=== PATIENT | female | born 1970 | race Caucasian/White ===

== ENCOUNTER 2019-05-31 08:20 | Outpatient (CLI) | payer BC, SELFPAY ==
--- NOTE | ~2019-05-31 | XR_ITS ---
XR knee RT min 4V 05/31/2019 08:53 INDICATION: Right knee pain PROCEDURE: 4 views right knee COMPARISON: No prior studies for comparison. FINDINGS: Fracture, dislocation or subluxation is not identified. No significant joint effusion. The soft tissues appear within normal limits. No foreign bodies are identified. IMPRESSION: 1: NO ACUTE BONE OR JOINT ABNORMALITY IDENTIFIED. Reviewed, dictated and finalized at location A.
--- NOTE | ~2019-05-31 | XR_ITS ---
XR shoulder LT min 2V 05/31/2019 08:53 Indication: Left shoulder pain Procedure: 4 views left shoulder Comparison: 06/05/2016 Findings: There is osteoarthritis of the left acromioclavicular joint. No fracture, subluxation or di slocation. No focal soft tissue abnormality. No foreign bodies. Visualized lung parenchyma is unremar kable. Impression: 1: Mild osteoarthritis of the left acromioclavicular joint. Reviewed, dictated and finalized at location A. Impression: 1: Mild osteoarthritis of the left acromioclavicular joint.
== END 2019-05-31 08:21 | disposition home or self-care (01) ==
PROVIDERS: PCP Nurse Practitioner Family; Visit Provider Nurse Practitioner Family
DX: M19.012 Primary osteoarthritis, left shoulder (principal)
CPT/HCPCS: 73030; 73564

== ENCOUNTER 2019-07-23 10:40 | Outpatient (CLI) | payer BC, SELFPAY ==
--- NOTE | ~2019-07-23 | XR_ITS ---
EXAMINATION: XR elbow LT min 3V DATE: 07/23/2019 11:04 INDICATION: Left elbow pain and locking up TECHNIQUE: Anteroposterior, two oblique and lateral views of the left elbow were obtained. COMPARISON: None. FINDINGS: Alignment is normal. No fracture or joint effusion. Mild osteoarthritis at the left elbow with small marginal osteophytes as well as mild nonuniform joint space narrowing at the ulnotrochlear articulati on. 6 x 4 mm loose osteochondral body projects along the posterior margin of the ulnotrochlear articu lation. Soft tissues are unremarkable. IMPRESSION: 1. Mild left elbow osteoarthritis with loose osteochondral body at the posterior margin of the ulnotr ochlear articulation. Reviewed, dictated and finalized at location A. IMPRESSION: 1. Mild left elbow osteoarthritis with loose osteochondral body at the posterio r margin of the ulnotrochlear articulation.
== END 2019-07-23 10:41 | disposition home or self-care (01) ==
PROVIDERS: PCP Nurse Practitioner Family; Visit Provider Nurse Practitioner Family
DX: M25.522 Pain in left elbow (principal); M19.022 Primary osteoarthritis, left elbow
CPT/HCPCS: 73080

== ENCOUNTER 2019-10-03 08:21 | Outpatient (CLI) | payer BC, SELFPAY ==
--- NOTE | 2019-10-03 11:00 | NEURO_ITS ---
Patient Number: [id number] Impression: # Complains of numbness and pain of hands # Evolving Carpal Tunnel Syndrome # No ulnar neuropathy. # Normal needle/EMG exam. Nerve Conduction Studies Anti Sensory Summary Table Stim Site NR Peak (ms) P-T Amp (?V) Site1 Site2 Delta-P (ms) Dist (cm) Torsten (m/s) Left Median Anti Sensory (2-3nd Digit) Wrist 3.1 59.3 Wrist 2-3nd Digit 3.1 14.0 45 Wrist 3.3 42.7 Wrist 2-3nd Digit 3.1 14.0 45 Right Median Anti Sensory (2-3nd Digit) Wrist 4.0 43.0 Wrist 2-3nd Digit 4.0 14.0 35 Wrist 3.7 44.7 Wrist 2-3nd Digit 4.0 14.0 35 Left Radial Anti Sensory (Base 1st Digit) Wrist 2.2 22.9 Wrist Base 1st Digit 2.2 0.0 Right Radial Anti Sensory (Base 1st Digit) Wrist 2.8 25.5 Wrist Base 1st Digit 2.8 0.0 Left Ulnar Anti Sensory (5th Digit) Wrist 2.8 59.6 Wrist 5th Digit 2.8 14.0 50 Right Ulnar Anti Sensory (5th Digit) Wrist 2.7 67.2 Wrist 5th Digit 2.7 14.0 52 Motor Summary Table Stim Site NR Onset (ms) O-P Amp (mV) Site1 Site2 Delta-0 (ms) Dist (cm) Torsten (m/s) Left Median Motor (Abd Poll Brev) Wrist 3.6 5.3 Elbow Wrist 4.7 28.0 60 Elbow 8.3 4.7 Right Median Motor (Abd Poll Brev) Wrist 3.8 1.0 Elbow Wrist 4.6 26.0 57 Elbow 8.4 2.7 ELB/ADM Wrist 0.4 0.0 Left Ulnar Motor (Abd Dig Minimi) Wrist 2.7 4.5 A Elbow Wrist 5.0 28.0 56 A Elbow 7.7 4.5 Right Ulnar Motor (Abd Dig Minimi) Wrist 2.9 6.9 A Elbow Wrist 4.8 28.0 58 A Elbow 7.7 5.0 F Wave Studies NR F-Lat (ms) L-R F-Lat (ms) Left Median (Mrkrs) (Abd Poll Brev) 28.72 0.07 Right Median (Mrkrs) (Abd Poll Brev) 28.65 0.07 Left Ulnar (Mrkrs) (Abd Dig Min) 28.22 0.85 Right Ulnar (Mrkrs) (Abd Dig Min) 27.38 0.85 EMG Side Muscle Nerve Root Ins Act Fibs Amp Dur Recrt Comment Right 1stDorInt Ulnar C8-T1 Nml Nml Nml Nml Nml Right Ext Indicis Radial (Post Int) C7-8 Nml Nml Nml Nml Nml Right Ext Digitorum Radial (Post Int) C7-8 Nml Nml Nml Nml Nml Right BrachioRad Radial C5-6 Nml Nml Nml Nml Nml Right PronatorTeres Median C6-7 Nml Nml Nml Nml Nml Right Abd Poll Brev Median C8-T1 Nml Nml Nml Nml Nml Left 1stDorInt Ulnar C8-T1 Nml Nml Nml Nml Nml Left Ext Indicis Radial (Post Int) C7-8 Nml Nml Nml Nml Nml Left Ext Digitorum Radial (Post Int) C7-8 Nml Nml Nml Nml Nml Left BrachioRad Radial C5-6 Nml Nml Nml Nml Nml Left PronatorTeres Median C6-7 Nml Nml Nml Nml Nml Left Abd Poll Brev Median C8-T1 Nml Nml Nml Nml Nml Right ABD Dig Min Ulnar C8-T1 Nml Nml Nml Nml Nml Left ABD Dig Min Ulnar C8-T1 Nml Nml Nml Nml Nml Left Anconeus Radial C7-8 Nml Nml Nml Nml Nml MTDD
== END 2019-10-03 08:22 | disposition home or self-care (01) ==
LOC: ANHNEURO 08:24
PROVIDERS: PCP Nurse Practitioner Family; Visit Provider Nurse Practitioner Family
DX: M25.531 Pain in right wrist (principal)
CPT/HCPCS: 95886; 95911

== ENCOUNTER 2021-12-17 10:22 | Emergency (ER) | payer BC, SELFPAY ==
[2021-12-17 10:42] VITALS: BP 83/48; PULSE 81; RESP 20; TEMP 36.9; O2SAT 100
--- NOTE | 2021-12-17 11:11 | ED.URI ---
HPI - URI/Sore Throat General Chief Complaint: Upper Respiratory Infection Stated Complaint: Congestion,Cough,Bilateral Ear Irritation Time Seen by Provider: 12/17/21 10:45 Source: patient Mode of arrival: ambulatory Limitations: no limitations History of Present Illness HPI Narrative: Ms. Vasquez is a 51-year-old female patient presenting to clinic today with complaints of cough, congestion, bilateral ear pain, body aches, chills, and headache. She reports her child was seen last week and was tested positive for influenza A. MD elicited complaint: sore throat and nasal congestion Related Data Allergies Allergy/AdvReac Type Severity Reaction Status Date / Time promethazine AdvReac Mild Nausea and Verified 12/17/21 10:44 Vomiting Review of Systems Review of Systems: Pertinent positives per HPI. Patient denies any rash, headache, visual changes, dizziness, shortness of breath, chest pain, palpitations, vomiting, diarrhea, constipation, abdominal pain, or any urinary issues. PMFSH Comments At the time of my signature, I reviewed and agree with the nursing past medical, surgical, social, and family history. There is no relevant family history pertinent to the patient complaint. Exam Narrative: General: Well-developed, well nourished, in no apparent distress Head: Normocephalic, atraumatic Eyes: Pupils equally round and reactive to light bilaterally, EOM intact, sclera and conjunctive clear, no discharge, lids normal Ears: TMs intact and dull, ear canals clear, no drainage, grossly hearing normal. Nose: Nares patent, clear nares discharge, no inflammation, no sinus tenderness. Mouth: Oral pharynx without lesions or masses, good dentition, MMM. Oropharynx red, postnasal drip Neck: Supple, trachea midline, no enlargement of anterior or posterior cervical nodes, no thyroid masses or goiter palpable. Cardio: Regular rate and rhythm, s1 and s2 normal, no murmur appreciated. Resp: Clear to auscultation bilaterally, no rhonchi, rales, wheezing or rubs Course Course Emergency Course: Portions of this record may have been created with voice recognition software. Level of Care: Express Care Visit Vital Signs Vital signs: Vital Signs Temperature 36.9 C 12/17/21 10:42 Pulse Rate 81 12/17/21 10:42 Respiratory Rate 20 12/17/21 10:42 Blood Pressure 83/48 L 12/17/21 10:42 Pulse Oximetry 100 12/17/21 10:42 Oxygen Delivery Room Air 12/17/21 10:42 Temperature 36.9 C 12/17/21 10:42 Pulse Rate 81 12/17/21 10:42 Respiratory Rate 20 12/17/21 10:42 Blood Pressure 83/48 L 12/17/21 10:42 Pulse Oximetry 100 12/17/21 10:42 Oxygen Delivery Room Air 12/17/21 10:42 Vital signs reviewed MDM - URI/Sore Throat MDM Narrative Medical decision making narrative: At the time of visit patient is resting comfortably on the exam table. Influenza and strep testing was retained in strep was negative however influenza a was positive in the clinic today. Prescription for Tamiflu was sent to the pharmacy and supportive measures were discussed with patient she voiced understanding of discharge instructions agrees to treatment plan. Differential Diagnosis Differential diagnosis: Likely upper respiratory infection, otitis media, sinusitis, viral infection, bronchitis, influenza, pharyngitis and other (COVID) Lab Data Labs: Influenza A Screen Positive Reference Range: Negative Influenza B Screen Negative Reference Range: Negative Strep Screen Presumptive Negative *(Reference Range: Negative)* Discharge Plan Discharge Clinical Impression: Influenza A Patient Disposition: Home, Self-Care Condition: Stable Instructions: Antibiotic Form, Influenza (ED) Additional Instructions: Take prescription medications only as prescr
== END 2021-12-17 11:20 | disposition home or self-care (01) ==
PROVIDERS: Emergency Provider Nurse Practitioner Family; PCP Nurse Practitioner Family
DX: J10.1 Influenza due to other identified influenza virus with other respiratory manifestations (principal); Z86.16 Personal history of COVID-19
CPT/HCPCS: 87081; 87804; 87880; 99213; G0463

== ENCOUNTER 2024-04-30 10:37 | Emergency (ER) | payer OTHER, SELFPAY ==
--- NOTE | ~2024-04-30 | XR_ITS ---
XR knee LT 3V Ordering provider: Froilan Liang PA-C History: . fall, HX OF SURG JAN 2023, reports anchor from meniscus surg . Comparison: None. FINDINGS: BONES: No acute fracture or dislocation. JOINT SPACES: Normal. SOFT TISSUES: Minimal suprapatellar bursa fluid. IMPRESSION: No acute osseous abnormality left knee. Reviewed, dictated and finalized at location A.
[2024-04-30 10:38] VITALS: BP 148/96; PULSE 88; RESP 16; TEMP 36.6; O2SAT 100
--- NOTE | 2024-04-30 10:53 | ED.LOWEXIN ---
HPI - Extremity Injury (Lower) General Chief Complaint: Extremity Injury, Lower Stated Complaint: fell, L knee injury Time Seen by Provider: 04/30/24 10:49 Source: patient Mode of arrival: ambulatory Limitations: no limitations History of Present Illness HPI Narrative: This is a 53-year-old female who presents to the ED for chief complaint of left knee injury occurring today just prior to arrival. Patient stumbled on rocks outside of her house and accidentally fell down onto the left knee. She is concerned because she has meniscus anchored in this knee. Denies any further sites of pain or injury. Denies numbness or weakness. Related Data Allergies Allergy/AdvReac Type Severity Reaction Status Date / Time promethazine AdvReac Mild Nausea and Verified 12/17/21 10:44 Vomiting Review of Systems Review of Systems: All systems as dictated in HPI Exam Narrative: GENERAL: Well-appearing, well-nourished, and in no acute distress. MSK: LLE: Left knee effusion noted. There is tenderness to the medial joint line as well as to the inferior knee. No tenderness over the patella. No deformity. Neurovascular intact distally. RLE: Benign SKIN: Warm, dry, no rash. NEURO: Alert and oriented x4. No focal deficits. PSYCH: Normal mood and affect. Course Vital Signs Vital signs: Vital Signs Temperature 97.9 F 04/30/24 10:38 Pulse Rate 88 04/30/24 10:38 Respiratory Rate 16 04/30/24 10:38 Blood Pressure 148/96 H 04/30/24 10:38 Pulse Oximetry 100 04/30/24 10:38 Oxygen Delivery Room Air 04/30/24 10:38 Temperature 97.9 F 04/30/24 12:13 Pulse Rate 78 04/30/24 12:13 Respiratory Rate 16 04/30/24 12:13 Blood Pressure 138/88 04/30/24 12:13 Pulse Oximetry 100 04/30/24 12:13 Oxygen Delivery Room Air 04/30/24 10:38 MDM - Extremity Injury (Lower) MDM Narrative Medical decision making narrative: This is a 53 female who presents to the ED for chief complaint of knee pain after fall today. Vitals are normal. Exam shows left knee effusion but otherwise benign. Left knee x-rays show no acute osseous findings. Patient does have effusion on the left knee so she was placed in knee immobilizer and given crutches today. Encouraged follow-up with her orthopedic surgeon regarding the meniscus anchor. Patient will be discharged in stable condition. Supportive measures discussed and return precautions given. Patient is understanding and agreeable with plan for discharge with PCP follow-up. Discharge Plan Discharge Clinical Impression: Effusion of knee joint, left Patient Disposition: Home, Self-Care Condition: Stable Instructions: Antibiotic Form Additional Instructions: Exam is reassuring today, however you will have to see Orthopedics if you end up needing an MRI for re-evaluation. Continue with ibuprofen 600 mg every 6 hours as needed for pain and swelling. If you have any new or worsening symptoms please return to the ER for further evaluation. Patient Language: Malay Prescriptions: No Action oseltamivir [Tamiflu] 75 mg capsule 75 mg PO Q12H 5 Days Qty: 10 0RF Follow-up/Referrals: Stephenie Morales APRN [Primary Care Provider] - Time of Disposition: 11:51
[2024-04-30] MEDS: ACETAMINOPHEN 500 MG TABLET 1000 MG PO (11:57)
[2024-04-30] MEDS: IBUPROFEN 400 MG TABLET 800 MG PO (11:57)
--- OUTSIDE RECORDS SUMMARY | 2024-04-30 11:57 | XMS_ITS | Clinical Summary ---
Author Organization [facility] Address [address] [place] [address] Care Team Providers Care Aircraft Armament Mechanic Name Role Phone Unavailable Primary Care Provider Unavailabl e Source Comments [facility]non-owned Affiliates and Associated Physician Practices is amultiple site organization consisting of ambulatory clinics and hospital sitesin [place], [place], [place] and [place]. This disclosure is being madepursuant to the Care Everywhere program and may not contain all information available regarding this patient. Last updated 17.[facility] Social History Tobacco Use Types Packs/Day Years Used Date Smoking Tobacco: Never Assessed Sex and Gender Information Value Date Recorded Sex Assigned at Not on file Gender Identity Not on file Sexual Orientation Not on file Plan of Treatment Health Maintenance Due Date Last Done Comments COLOGUARD (AGES 45-75) - COL ON CA SCREENING 1971 COLON MONITORING 1971 COLONOSCOPY - COLON CA SCREENING 1971 CT COLONOGRAPHY - COLON CA SCREENING 1971 Colorectal Cancer Screening 1971 FIT - COLON CA SCREENING 1971 FLEX SIG - COLON CA SCREENING 1971 LIPID TESTING 1971 MAMMOGRAM 1971 PAP SMEAR 1971 HIV SCREENING 07/29/1986 HEPATITIS C SCREENING 07/25/1989 DTAP/TDAP/TD VACCINES (1 - Tdap) 07/29/1990 HEPATITIS B VACCINE (1 of 3 - 19+ 3-dose series) 07/29/1990 PNEUMOCOCCAL VACCINE 50+ (1 of 1 - PCV) 07/29/2021 ZOSTER VACCINE (1 of 2) 07/29/2021 COVID-19 VACCINE (1 - 2023-2 5 season) 2023 INFLUENZA VACCINE (#1) 2023 DEPRESSION SCREENING 02/14/2024 HIB VACCINE Aged Out No longer eligi ble based on patient's age to complete this topic HPV VACCINE Aged Out No longer eligi ble based on patient's age to complete this topic MENINGOCOCCAL (Group B) VACC INE SHARED DECISION-MAKING Aged Out No longer eligibl e based on patient's age to complete this topic MENINGOCOCCAL GROUPS A/C/Y/W VACCINE Aged Out No longer eligible b ased on patient's age to complete this topic PNEUMOCOCCAL VACCINE Aged Out No long er eligible based on patient's age to complete this topic
--- OUTSIDE RECORDS SUMMARY | 2024-04-30 11:57 | XMS_ITS | Clinical Summary ---
Author Organization [facility] Address [address] [place] [id number] Care Team Providers Care Sleeping Room Cleaner Name Role Phone Unavailable Primary Care Provider Unavailabl e Social History Tobacco Use Types Packs/Day Years Used Date Smoking Tobacco: Never Assessed Comments Unknown Sex and Gender Information Value Date Recorded Sex Assigned at Not on file Legal Sex Female 5:36 PM CDT Gender Identity Not on file Sexual Orientation Not on file Plan of Treatment Health Maintenance Due Date Last Done Comments Cervical Cancer Screening Pa p Smear (Age 30 to 64) Every 3 Years 1971 Colorectal Cancer Screening Colonoscopy (10 Years) 1971 Annual Physical 07/29/1974 Hepatitis C 07/29/1989 DTaP, Tdap and Td Vaccines ( 1 - Tdap) 07/29/1990 Hepatitis B Vaccines (1 of 3 - 19+ 3-dose series) 07/29/1990 Cervical Cancer Screening Pa p with HPV Testing (Age 30 to 64) Every 5 Years 07/29/2001 Cervical Cancer Screening with HPV 07/29/2001 Mammogram Screening 2011 Zoster Vaccines (1 of 2) 07/29/2021 COVID-19 Vaccine (2023-2 5 season) 2023 Influenza Adult (#1) 2023 Meningococcal B Vaccine Aged Out No l onger eligible based on patient's age to complete this topic Meningococcal Vaccine Aged Out No cassie claribel eligible based on patient's age to complete this topic Pneumococcal Vaccine: Pediat rics (0 to 5 Years) and At-Risk Patients (6 to 64 Years) Aged Out No longer eligible b ased on patient's age to complete this topic RSV Immunizations Under 20 Months Aged Out No longer eligible based on patient's age to complete this topic
--- OUTSIDE RECORDS SUMMARY | 2024-04-30 11:57 | XMS_ITS | Data Portability ---
Author Organization [place] [facility] [employer], Main Office Address [address] [place] [address] Care Team Providers Care Park Worker Supervisor Name Role Phone STEPHENIE MENDOZA Primary Care Provider [phone] STEPHENIE MENDOZA Referring Provider [phone] Assessment Encounter Date Assessment Date Assessment LastModified by Organization Details LastModified Time 06/02/2023 06/02/2023 52-year-old female presents for follow-up of her left knee. She has history of meniscal root repair on 01/19/2023. She was progressing well but states that she is now in severe pain. Over the last few weeks her pain and swelling has started to increase and she has been experiencing catching and locking like she did prior to surgery. She states she is unable to plant and twist the leg without severe pain. It is making it difficult to walk for short distances and sleep at night. She denies any new injuries. She has tried anti-inflammator ies, heat, ice, bracing, which is not helping. At her last appointment we ordered an MRI. Her insurance denied it until she had an updated Xray of the knee. She returns today to get the Xray. Imaging: Xray reveiwed shows no acute bony abnormality or fracture. Preserved joint spaces. Physical exam: Antalgic gait entering and exiting exam room. Incisions are well healed. 1+ edema. Tenderness with palpitation around knee. ROM 0-140. Positive McMurrays. Sensation intact. Her symptoms are unchanged since her last visit. She is still experiencing pain, swelling, catching, locking. We will proceed with MRI. We will see her back after the MRI to review the results. Not available 06/02/2023 10:49:19 07/18/2023 07/18/2023 52-year-old female presents for follow-up of her left knee. She has a history of a left medial meniscus root repair on 01/19/2023. She has worsening pain in the knee which failed a course of physical therapy and anti-inflammator ies. At her last visit, an MRI was ordered she is here to review that. She still has pain, catching, and mechanical symptoms in the knee. She currently rates her pain as 8/10. antalgic gait.Incisions are well healed. She has tenderness over the medial joint line. Range of motion 0-140 with pain at terminal flexion positive Scotty's. Neurovascular intact. MRI was reviewed, demonstrting a recurrent root tear of the medial meniscus We reviewed her MRI findings and discuss treatment options for her recurrent root tear. One option would be to try a cortisone injection . The other option would be to do another knee arthroscopy for partial meniscectomy. She wants to try the cortisone injection 1st and she tolerated that well. We will see her back as needed if anything changes and she wants to proceed with the surgery. Not available 07/18/2023 15:49:26 11/08/2023 11/08/2023 53-year-old female presents for follow-up of her left knee. She reports having persistent symptoms in her knee with her medial meniscus. She has not had any improvement with anti-inflammator ies, bracing, cortisone injection, so reports her pain as 7/10, frequently having catching and locking. She is unable to do the activities that she wants to do, presents today to discuss other options She has tenderness palpation of the medial joint line. Antalgic gait. Range of motion 10-120, pain at terminal flexion. Positive Scotty's. Previous MRI reviewed, demonstrating a retear of the medial meniscus root We discussed her treatment options including continued conservative management or surgery which would be a partial meniscectomy. We discussed the recovery process as well. She has had 2 previous meniscal surgeries. Risks, benefits, and alternatives to surgery were discussed with the patient. Risks include but are not limited to pain, stiffness, infection, bleeding, blood clot, injury to other structures including nerves or blood vessels, need for future surgery, and anesthesia risks. We discussed the goal of surgery is to improve symptoms but there is no guarantee of improvement and it is possible the patient's condition is worse after surgery. Patient agreed and would like to proceed. Not available 11/08/2023 17:37:09 12/01/2023 12/01/2023 53-year-old patient presents today for 1st postop follow-up after left knee partial medial meniscectomy on 11/23/[address] Sherman. She states she is doing well overall, 3/10 pain. She states there are some days that are more painful but it is less pain than she was having before surgery. She takes meloxicam for the pain. Physical exam: Sutures removed and Steri-Strips were placed. Incisions were clean dry and intact without signs and symptoms of infection. No bruising or edema. Tenderness with palpitation. Range of motion 0 140. She is progressing as expected. We discussed incisional care. We will see her back in 4 weeks for recheck or sooner if any issues arise. She is in agreement with this plan. Not available 12/01/2023 09:16:26 01/09/2024 01/09/2024 53-year-old patient presents today for postop follow-up after left knee partial medial meniscectomy on 11/23/[address] Sherman. She states she is okay overall, 3/10 pain. She states there are some days that are more painful. It swells and is painful if she is on it for multiple hours, but it is less pain than she was having before surgery. She no longer has catching, locking, grinding. She takes meloxicam for the pain and uses a compressive wrap and ice if it swells. Physical exam: Incisions well healed. No bruising or edema. No tenderness with palpitation. Range of motion 0 140. She is progressing as expected. We discussed that her pain may continue to get better with time, but that the main goal of surgery was to improve her mechanical symptoms. We recommend she keep up with PT exercises, NSAIDs, and compressive wrapping as needed. We can see her back as needed for pain. She is in agreement with this plan. Not available 01/09/2024 09:19:35 Plan of Treatment Reminders Order Date Submit Date Provider Last Modified By Organization Details Last Modified Time Details Appointments None recorded. Lab None recorded. Referral None recorded. Procedures injection/a spiration joint/bursa (PROC) 2023 024 [email or web address] 3 In-Office Order, Internal Use Only DO Not Attach Compendium DO Not Attach Compendium, Do Not Delete/merge, [id number] 10:59:19 Surgeries None recorded. Imaging XR, knee, 3 view 2023 024 [email or web address] [facility] [place], [address], [place], [address], 4 11:45:09 Medication Orders bupivacaine HCl 0.5 % (5 mg/mL) injection solution 2023 024 [email or web address] [id number] [id number], [address], [place], [id number], 16:01:29 Kenalog 10 mg/mL suspension for injection 2023 024 [place] [address] [facility][id number], [address], [place], [phone], 16:01:34 Patient TargetsNo targets recorded. Patient InstructionsNo instructions recorded. Reason for Referral None Reported. Results Created Date Observation Date Name Description Value Unit Range Abnormal Flag Note LastModifiedBy Organization Detail LastModifiedTime 06/02/19 24 XR, knee, 3 view No observ ation record ed. [email or web address] [facility] [place] [address], [place], [address], 06/26/2023 10:56:46 07/04/19 24 07/04/2023 MRI, knee, w/o contr ast No observ ation record ed. [email or web address] [facility] [address] [place], [address], 07/04/2023 16:11:48 Result Notes None recorded. Problems Name Problem SNOMED Code Status Onset Date Resolution Date Notes Provider Name and Address Organization Details Recorded Time Pain of left elbow joint 2434141788693 9104 Active 2019 Not Available [facility] 3 18:20:26 Menopausal flushing 892824647 Active 2018 Not Available [facility] 3 18:20:26 Viral myalgia 243910724 Active 2021 Not Available [facility] 3 18:20:26 Chest discomfort 244006938 Active 2018 Not Available [facility] 3 18:20:26 Tear of medial meniscus of knee 234593002 Active 2021 Not Available [facility] 3 18:20:26 Tear of medial meniscus of knee 032945362 Active 2021 Not Available [facility] 3 18:20:26 Localized, primary osteoarthr itis of elbow 477015023 Active Not Available [facility] 3 18:20:26 Sinusitis 78972240 Active 2021 Not Available [facility] 3 18:20:26 Memory impairment 589553313 Active 2018 Not Available [facility] 3 18:20:26 Pain of left knee joint 5018439442885 07 Active 2021 Not Available [facility] 3 18:20:27 Cough 69868966 Active 2021 Not Available [facility] 3 18:20:27 Joint pain 38316989 Active 2018 Not Available [facility] 3 18:20:27 Allergic rhinitis 27491980 Active 2021 Not Available [facility] 3 18:20:27 Reduced libido 5705189 Active 2018 Not Available [facility] 3 18:20:27 Fatigue 79998423 Active 2018 Not Available [facility] 3 18:20:27 Chondromal acia of left patella 1683839873817 06 Active 2022 Jenny Molina, FARIBA null, [place] [facility] 3 09:33:36 Acute sinusitis 14654719 Active 2022 Stephenie Mendoza NP [address], [place], [address] , [facility] 3 11:14:12 Urinary tract infectious disease 58687709 Active 2023 Dayton Doll MD [address], [place], [address] , [facility] [employer] [facility] 4 13:58:53 Problem Notes None recorded. Procedures Surgical History Date Name Laterality Status Provider Name and Address Organization Details Recorded Time 4 Ortho - Cortisone Injection completed Rene Sherman MD [address], [place], [address], [facility] 07/18/2023 15:49:38 4 Ortho - Cortisone Injection completed Jennie Motta NP [address], [place], [address], [facility] [employer] [facility] 05/24/2023 14:35:21 3 Ortho - Cortisone Injection completed Gary Patrick MD [address], [place], [address], [facility] [employer] [facility] 06/16/2022 09:57:42 3 Breast Surgery completed Not Available [facility] 04/13 18:19:48 2 section completed Not Available [facility] 04/13/2022 18:19:48 0 section completed Not Available [facility] 04/13/2022 18:19:48 Imaging Results Imaging Date Name Status LastModified by Organiz ation Details LastModified Time 06/02/2023 XR, knee, 3 view completed [email or web address] [facility] [place] [address], [place], [address], 06/26/2023 10:56:46 07/04/2023 MRI, knee, w/o contrast completed [email or web address] [facility] [address] [place], [address], 07/04/2023 16:11:48 Procedure Notes None recorded. Medical Equipment None Reported. Allergies No known drug allergies Medications Name Sig Start Date Stop Date Status Note LastModified by Organization Details LastModified Time prednisone 10 mg tablet 12/12 completed Not Available Not Available Not Available azithromyci n 250 mg tablet TAKE 2 TABLETS (500 MG) BY ORAL ROUTE ONCE DAILY FOR 1 DAY THEN 1 TABLET (250 MG) BY ORAL ROUTE ONCE DAILY FOR 4 DAYS 12/26 completed Not Available Not Available Not Available ibuprofen 800 mg tablet TAKE 1 TABLET BY MOUTH THREE TIMES DAILY NEEDED 2023 active Not Available Not Available Not Avai lable benzonatate 200 mg capsule Take 1 capsule every 8 hours by oral route as needed for 5 days. 12/12 completed Not Available Not Available Not Available hydrocodone 5 mg-acetamin ophen 325 mg tablet Take 1 tablet every 6 hours by oral route. active Not Available Not Available No t Available meloxicam 15 mg tablet TAKE 1 TABLET BY MOUTH EVERY DAY 2023 active Not Available Not Available Not Avai lable bupivacaine HCl 0.5 % (5 mg/mL) injection solution in office 12/25 completed Not Available Not Available Not Available prednisone 20 mg tablet 07/26 completed Not Available Not Available Not Available ciprofloxac in 500 mg tablet Take 1 tablet every 12 hours by oral route as directed for 5 days. 05/17 completed Not Available Not Available Not Available aspirin 81 mg tablet,pavan yed release active Not Available Not Available Not Available tramadol 50 mg tablet Take 1 tablet every 8 hours by oral route as needed. 12/25 completed Not Available Not Available Not Available prednisone 10 mg tablets in a dose pack Take 1 tab by mouth, 3 times a day for 3 daysTake 1 tab by mouth 2 times a day for 2 daysTake 1 tab by mouth once a day for 1 day 12/12 completed Not Available Not Available Not Available meloxicam 7.5 mg tablet 07/26 completed Not Available Not Available Not Available Kenalog 10 mg/mL suspension for injection in office 12/25 completed [facility]: 0003- 0494- 20 Not Available Not Available Not Available oseltamivir 75 mg capsule 12/12 completed Not Available Not Available Not Available diclofenac sodium 75 mg tablet,pavan yed release Take 1 tablet twice a day by oral route. 12/12 completed Not Available Not Available Not Available methylpredn isolone 4 mg tablets in a dose pack Take 1 dose pk every day by oral route as directed for 6 days. 12/12 completed Not Available Not Available Not Available amoxicillin 875 mg-potassiu m clavulanate 125 mg tablet Take 1 tablet every 12 hours by oral route as directed for 10 days. 12/12 completed Not Available Not Available Not Available cyclobenzap rine 5 mg tablet 07/26 completed Not Available Not Available Not Available Marcaine (PF) 0.5 % (5 mg/mL) injection solution in office 2023 active Not Available Not Available Not Avai lable ropivacaine (PF) 5 mg/mL (0.5 %) injection solution Take 20 mg by injection route. 12/12 completed Not Available Not Available Not Available Virtussin AC 10 mg-100 mg/5 mL oral liquid 07/26 completed Not Available Not Available Not Available COVID-19 test specimen collection DIRECTED 05/21 completed Not Available Not Available Not Available Vitals Date Recorded Body height Body mass index (BMI) Body weight Pain severity - 0-10 verbal numeric rating [Score] - Reported Provider Name and Address Organization Details Last Updated DateTime 06/02/2023 170.18 cm 22.7 kg/m2 88157.89 g Kristin Chen [facility] [employer] 06/02/2023 10:25:25 Date Recorded Body height Body mass index (BMI) Body weight Provider Name and Address Organization Details Last Updated DateTime 07/18/2023 170.18 cm 23.5 kg/m2 08858.86 g Ayse Arreguin [facility] [employer] 07/18/2023 09:29:40 Date Recorded Body height Body mass index (BMI) Body weight Pain severity - 0-10 verbal numeric rating [Score] - Reported Provider Name and Address Organization Details Last Updated DateTime 11/08/2023 170.18 cm 23.5 kg/m2 87381.86 g 7 Soumya Chen [facility] 11/08/2023 15:40:16 Date Recorded Body height Body mass index (BMI) Body weight Pain severity - 0-10 verbal numeric rating [Score] - Reported Provider Name and Address Organization Details Last Updated DateTime 12/01/2023 170.18 cm 23.5 kg/m2 54082.86 g 3 Soumya Chen [facility] 12/01/2023 09:05:21 Date Recorded Body height Body mass index (BMI) Body weight Pain severity - 0-10 verbal numeric rating [Score] - Reported Provider Name and Address Organization Details Last Updated DateTime 01/09/2024 170.18 cm 23.5 kg/m2 20497.86 g 3 Soumya Chen [facility] 01/09/2024 09:08:43 Social History Question Answer Notes LastModified by Organizat ion Details LastModified Time Tobacco Smoking Status Never Smoker Not Available [facility] 04/13/2022 18:19:42 What Is Your Level Of Alcohol Consumption? Occasional [id number] Information not available 04/13/2022 Do You Wear A Helmet When Biking? No MIGRATION.440553 5816 Information not available 04/13/2022 What Is Your Level Of Caffeine Consumption? Moderate MIGRATION.[id number] 7542 Information not available 04/13/2022 How Much Tobacco Do You Chew? None MIGRATION.684059 0430 Information not available 04/13/2022 In The 14 Days Before Symptom Onset, Have You Had Close Contact With A Laboratory-confir med COVID-19 While That Case Was Ill? No MIGRATION.404251 7375 Information not available 04/13/2022 In The 14 Days Before Symptom Onset, Have You Had Close Contact With A Person Who Is Under Investigation For COVID-19 While That Person Was Ill? No MIGRATION.107246 6049 Information not available 04/13/2022 What Type Of Diet Are You Following? REGULAR MIGRATION.[id number] 9330 Information not available 04/13/2022 Do You Or Have You Ever Used E-cigarettes Or Vape? Never Used Electronic Cigarettes MIGRATION.300772 9761 Information not available 04/13/2022 What Is The Highest Grade Or Level Of School You Have Completed Or The Highest Degree You Have Received? 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 No MIGRATION.480039 7217 Information not available 04/13/2022 Do You Use Insect Repellent Routinely? No MIGRATION.747804 6632 Information not available 04/13/2022 Where Do You Live? Apartment MIGRATION.547814 6518 Information not available 04/13/2022 Do You Have Any Pets? No MIGRATION.633704 4603 Information not available 04/13/2022 What Is Your Relationship Status? Single MIGRATION.150359 0226 Information not available 04/13/2022 Do You Use Your Seat Belt Or Car Seat Routinely? Yes MIGRATION.735707 6870 Information not available 04/13/2022 Do You Have Smoke And Carbon Monoxide Detectors In Your Home? Yes MIGRATION.700452 4318 Information not available 04/13/2022 Are You Passively Exposed To Smoke? No MIGRATION.810391 5369 Information not available 04/13/2022 Do You Or Have You Ever Used Smokeless Tobacco? Never Used Smokeless Tobacco MIGRATION.203341 4195 Information not available 04/13/2022 Are There Any Smokers In Your House? No MIGRATION.530909 6128 Information not available 04/13/2022 How Much Tobacco Do You Smoke? No MIGRATION.811357 4200 Information not available 04/13/2022 Do You Participate In Social Media? Yes MIGRATION.731418 6234 Information not available 04/13/2022 Do You Feel Stressed (tense, Restless, Nervous, Or Anxious, Or Unable To Sleep At Night)? [id number] MIGRATION.532079 1305 Information not available 04/13/2022 Do You Use Sunscreen Routinely? No MIGRATION.924923 0990 Information not available 04/13/2022 Are You Currently In School? No MIGRATION.435483 7633 Information not available 04/13/2022 Do You Have Any Dietary Restrictions? No MIGRATION.656849 7975 Information not available 04/13/2022 Sex: Female Functional Status Question Answer Note LastModified by Organizat ion Details LastModified Time What is your exercise level? Moderate [id number].[id number] Information not available 04/13/2022 Mental Status None recorded. Family History Relationship Description Onset Age of this Age Resolved Age Notes LastModified by Organization Details LastModified Time Father Family history of malignant neoplasm [id number] Not available 11/30 09:04:01 Maternal Grandmother Diabetes mellitus [email or web address] Not available 2022 09:51:19 Medical History No medical history recorded. Gynecological History Statement/Question Response Date of Last Pap 02/13/2019 Date of LMP Obstetrics History GPAL:G 4 P 4 0 0 4 Type Value Full Term 4 Living 4 Total 4 Past Encounters Encounter ID Performer Location Encounter Start Date Encounter Closed Date Diagnosis/Indication Diagnosis SNOMED-CT Code Diagnosis ICD10 Code Diagnosis Note [id number] [facility] [place] [address] [place] [address] 05/27/2020 00:00:00 05/27/2020 13:49:13 [id number] [facility] [address] [address] 05/28/2020 00:00:00 05/29/2020 11:55:36 [id number] [facility] [address] [address] 05/21/2021 00:00:00 05/21/2021 16:44:52 [id number] [facility] [address] [address] 09/28/2021 00:00:00 09/28/2021 09:18:39 [id number] [facility] [place] [address] [place] [address] 10/07/2021 00:00:00 10/07/2021 12:14:39 [id number] [facility] [place] [address] [place] [address] 11/01/2021 00:00:00 11/01/2021 17:28:22 [id number] [facility] [place] [address] [place] [address] 11/30/2021 00:00:00 11/30/2021 14:23:43 [id number] [facility] [place] [address] [place] [address] 12/28/2021 00:00:00 12/28/2021 14:17:52 [id number] [facility] [place] [address] [place] [address] 02/01/2022 00:00:00 02/08/2022 13:26:27 [id number] [facility] [place] [address] [place] [address] 03/28/2022 00:00:00 03/28/2022 10:33:11 [id number] Gary Patrick MD [facility] [place] [address] [place] [address] 06/16/2022 09:33:26 06/16/2022 10:37:37 Tear of medial meniscus of knee 567983585 S83.242D Pain of le ft knee joint 2102259867 05162 M25.562 Chondromal acia of left patella 0282591426 35852 M22.42 [id number] Gary Patrick MD [facility] [place] [address] [place] [address] 07/25/2022 09:30:34 07/25/2022 09:45:26 Tear of medial meniscus of knee 259478815 S83.242D Pain of le ft knee joint 9150467520 35166 M25.562 Chondromal acia of left patella 9452563284 91784 M22.42 [id number] TIMI Gonzalez [facility] [place] [address] [place] [address] 12/12/2022 09:40:08 12/12/2022 10:35:50 Tear of medial meniscus of knee 521702422 S83.242D Pain of le ft knee joint 5177930714 43466 M25.562 Chondromal acia of left patella 6306013083 42104 M22.42 [id number] Rene Sherman MD [facility] [place] [address] [place] [address] 01/11/2023 11:01:00 01/11/2023 11:51:26 Pain of left knee joint 1659706449 32591 M25.562 Tear of me dial meniscus of knee 655370343 S83.242A [id number] Rene Sherman MD [facility] [place] [address] [place] [address] 02/01/2023 15:48:41 02/01/2023 16:16:01 Pain of left elbow joint 9670655114 1597429 M25.522 Postoperative visit 1836 40595 Z09 [id number] Jennie Motta, [employer] TECHNICIAN [facility] [place] [address] [place] [address] 03/01/2023 10:00:34 03/01/2023 10:57:17 Pain of left knee joint 9636861546 77841 M25.059 [id number] Jennie Motta, [employer] TECHNICIAN [facility] [place] [address] [place] [address] 03/29/2023 09:52:46 03/29/2023 10:27:44 Pain of left knee joint 9911149032 13842 M25.180 [id number] Jennie Garciafs, [employer] TECHNICIAN [facility] [place] [address] [place] [address] 05/24/2023 14:09:39 05/24/2023 14:27:58 Pain of left knee joint 5075166133 97750 M25.079 [id number] Jennie Motta, [employer] TECHNICIAN [facility] [place] [address] [place] [address] 06/02/2023 10:23:27 06/02/2023 10:40:05 Pain of left knee joint 3862569211 72200 M25.438 [id number] Rene Sherman MD [facility] [place] [address] [place] [address] 07/18/2023 09:23:35 07/18/2023 10:57:57 Pain of left knee joint 4670959654 70548 M25.198 [id number] Rene Sherman MD [facility] [place] [address] [place] [address] 11/08/2023 15:37:00 11/08/2023 16:34:53 Pain of left knee joint 3403057549 52186 M25.562 Tear of me dial meniscus of knee 760256588 S83.242A [id number] Jennie Motta, FAISAL [facility] [place] [address] [place] [address] 12/01/2023 09:03:42 12/01/2023 09:32:37 Tear of medial meniscus of knee [id number] S83.242A [id number] Jennie Motta NP [facility] [employer] [facility] [address] [place] [address] 01/09/2024 09:06:42 01/09/2024 09:14:37 Tear of medial meniscus of knee [id number] S83.242A Health Concerns Section Related Observation LastModified by Organization Detai ls LastModified Time None Recorded Concern Status LastModified by Organization Details LastModified Time None Recorded Advance Directives Directive None Recorded Payers Encounter Date Sequence Insurance Name Policy Number Policy Kulkarni Covered Member ID Kulkarni Member ID Guarantor Name 06/02/2023 1 [place] [employer] [place] - [place]MO) [id number] [facility] Emrich [id number] Trini Emrich 07/18/2023 1 [place] [employer] [place] - [place] [id number] Trini Emrich [id number] Trini Emrich 11/08/2023 1 [place] [employer] - [place] [id number] Trini Emrich [id number] Trini Emrich 12/01/2023 1 [place] - [place]) [id number] Trini Emrich [id number] 22 Trini Vasquez 01/09/2024 1 [facility] (MEDICAID REPLACEMENT - O) [id number] Trini Vasquez [id number] Trini Vasquez OBGyn Episode No OBEpisode recorded.
--- OUTSIDE RECORDS SUMMARY | 2024-04-30 11:57 | XMS_ITS | Clinical Summary ---
Author Organization [facility] Address [address] [place] [address] Phone Care Team Providers Care Traffic Warehouse Supervisor Name Role Phone Unavailable Primary Care Provider Unavailabl e Social History Tobacco Use Types Packs/Day Years Used Date Smoking Tobacco: Never Assessed Comments Unknown Sex and Gender Information Value Date Recorded Sex Assigned at Not on file Legal Sex Female 12:20 PM CDT Gender Identity Not on file Sexual Orientation Not on file Plan of Treatment Not on file Insurance [place]
[2024-04-30 12:13] VITALS: BP 138/88; PULSE 78; RESP 16; TEMP 36.6; O2SAT 100
--- OUTSIDE RECORDS SUMMARY | 2024-04-30 12:49 | XMS_ITS | Clinical Summary ---
Author Organization [facility] Address [address] [place] [address] Care Team Providers Care Pulp Beater Name Role Phone Unavailable Primary Care Provider Unavailabl e Source Comments [facility] [employer],non-owned Affiliates and Associated Physician Practices is amultiple site organization consisting of ambulatory clinics and hospital sitesin [place], [place], [place] and [place]. This disclosure is being madepursuant to the Care Everywhere program and may not contain all information available regarding this patient. Last updated 17.[facility] [employer] Social History Tobacco Use Types Packs/Day Years [...]
--- OUTSIDE RECORDS SUMMARY | 2024-04-30 12:49 | XMS_ITS | CONTINUITY OF CARE DOCUMENT ---
Author Name jorgito trevoryogi Address Unknown Organization [facility] Address [address] [place] [address] [address] [place] [address] Phone [phone] Care Team Providers Care Demonstrator [employer] Name Role Phone Emil ARTEAGA, Steve Unavailable Andrew MCLAUGHLIN-Stephenie MENEZES Unavailable Andrew MCLAUGHLIN-Stephenie MENEZES Unavailable INSURANCE PROVIDERS Payer name Policy type / Coverage type [place] red libertarian ID [facility] [id number]
--- OUTSIDE RECORDS SUMMARY | 2024-04-30 12:49 | XMS_ITS | Clinical Summary ---
Author Organization [facility] Address [address] [place] [address] Care Team Providers Care Playground Attendant Name Role Phone Unavailable Primary Care Provider [...]
--- OUTSIDE RECORDS SUMMARY | 2024-04-30 12:49 | XMS_ITS | Clinical Summary ---
Author Organization [facility] Address [address] [place] [address] Phone Care Team Providers Care Manufacturing Technology Analyst Name Role Phone Unavailable Primary Care Provider [...]
== END 2024-04-30 12:20 | disposition home or self-care (01) ==
PROVIDERS: Emergency Provider Physician Assistant; PCP Nurse Practitioner Family
DX: M25.462 Effusion, left knee (principal); W18.09XA Striking against other object with subsequent fall, initial encounter
CPT/HCPCS: 73562; 99283; A9270

== ENCOUNTER 2024-10-11 11:15 | Outpatient (CLI) | payer OTHER, SELFPAY ==
--- OUTSIDE RECORDS SUMMARY | 2024-10-11 11:22 | XMS_ITS | Clinical Summary ---
Author Organization [facility] Address [address] [place] [address] Care Team Providers Care Coin Collector Name Role Phone Unavailable Primary Care Provider Unavailabl e Source Comments [facility] [employer]non-owned Affiliates and Associated Physician Practices is amultiple site organization consisting of ambulatory clinics and hospital sitesin [place], [place], [place] and [place]. This disclosure is being madepursuant to the Care Everywhere program and may not contain all information available regarding this patient. Last updated 17.[facility] [employer] Social History Tobacco Use Types Packs/Day Years Used Date Smoking Tobacco: Never Assessed Comments Unknown Sex and Gender Information Value Date Recorded Sex Assigned at Not on file Legal Sex Female 3:05 PM CDT Gender Identity Not on file [...] SCREENING 1971 LIPID TESTING 1971 MAMMOGRAM 1971 HIV SCREENING 07/29/1986 HEPATITIS C SCREENING 07/25/1989 DTAP/TDAP/TD VACCINES (1 - Tdap) 07/29/1990 HEPATITIS B VACCINE (1 of 3 - 19+ 3-dose series) 07/29/1990 PAP SMEAR 07/29/1992 PNEUMOCOCCAL VACCINE 50+ (1 of 1 - PCV) 07/29/2021 ZOSTER VACCINE (1 of 2) 07/29/2021 COVID-19 VACCINE (1 - 2023-2 5 season) 2023 DEPRESSION SCREENING 02/14/2024 INFLUENZA VACCINE (#1) 2024 HIB VACCINE Aged Out No longer eligi [...]
--- OUTSIDE RECORDS SUMMARY | 2024-10-11 11:22 | XMS_ITS | Clinical Summary ---
Author Organization [facility] Address [address] [place] [address] Phone Care Team Providers Care Rfp Writer Name Role Phone Unavailable Primary Care Provider [...]
--- OUTSIDE RECORDS SUMMARY | 2024-10-11 11:22 | XMS_ITS | Clinical Summary ---
Author Organization [facility] Address [address] [place] [address] Care Team Providers Care Project Scientist Name Role Phone Stephenie Morales MARKETING SALES REPRESENTATIVE Primary Care Provider + Allergies No known active allergies Medications No known medications Active Problems No known active problems Surgical History Surgery Date Site/Laterality Comments [place] DELIVERY ONLY Section - (Added by TW Conv) Medical History Medical History Date Comments Personal history of other sp ecified conditions History of memory loss - (Ad ded by TW Conv) Personal history of other di seases of the musculoskeletal system and connective tissue History of arthritis - (Adde d by TW Conv) Personal history of other di seases of the musculoskeletal system and connective tissue History of muscle pain - (Ad ded by TW Conv) Effusion of joint Swelling of mu ltiple joints - (Added by TW Conv) Personal history of other me ntal and behavioral disorders History of anxiety - (Added by TW Conv) Family History Medical History Relation Name Comments Cancer Father Family history of cancer - (Added by TW Conv) Depression Mother Family history of depression - (Added by TW Conv) Heart disease Other Family history of cardiac disorder - Relation: Grandparent (Added by TW Conv) Hypertension Other Family history of hypertension - Relation: Grandparent (Added by TW Conv) Relation Name Status Comments Father Mother Other Social History Tobacco Use Types Packs/Day Years Used Date Smoking Tobacco: Never Comments Unknown Sex and Gender Information Value Date Recorded Sex Assigned at Not on file Legal Sex Female 2:20 PM CDT Gender Identity Not on file Sexual Orientation Not on file Obstetrics History Last Filed Vital Signs Vital Sign Reading Time Taken Comments Blood Pressure 123/82 06/26/2024 8:40 AM CDT Pulse 74 06/26/2024 8:40 AM CDT Temperature - - Respiratory Rate - - Oxygen Saturation 100% 12/01/2016 1:12 PM CDT Inhaled Oxygen Concentration - - Weight 68 kg (150 lb) 06/26/2024 8:40 AM CDT Height 167.6 cm (5' 6) 06/26/2024 8:40 AM CDT Body Mass Index 24.21 06/26/2024 8:40 AM CDT Plan of Treatment Health Maintenance Due Date Last Done Comments Breast Cancer Screening-Mammogram 1971 Cervical Cancer Screening 1971 Colon Cancer Screening-Colonoscopy 1971 Depression Screening 1971 Hepatitis C Screening 1971 DTaP/Tdap/Td Vaccine (1 - Tdap) 07/29/1982 Hepatitis B Screening 07/29/1989 Regular Well Visit/Exam 18-64 07/29/1989 Zoster Vaccine (1 of 2) 07/29/2021 Influenza Vaccine (#1) 2024 Pneumococcal vaccine <65 Aged Out No longer eligible based on patient's age to complete this topic Insurance [facility] Care Teams Project Scientist Relationship Specialty Start Date End Date Stephenie Morales NP PCP - General Nurse Practitioner 11/07/23
--- OUTSIDE RECORDS SUMMARY | 2024-10-11 11:22 | XMS_ITS | Clinical Summary ---
Author Organization [facility] Address [address] [place] [id number] Care Team Providers Care Insolvency Consultant Name Role Phone Unavailable Primary Care Provider Unavailabl e Allergies No known active allergies Medications No known medications Encounters Date Type Department Care Team Description 09/01/2024 7:23 AM CDT - 09/01/2024 9:01 AM CDT Emergency [facility] Emergency Department [address] [place] [address] Mignon Gastelum, Laceration of eyebrow and forehead, left, initial encounter (Primary Dx) Discharge Disposition: Home from Last 3 Months Social History Tobacco Use Types Packs/Day Years Used Date Smoking Tobacco: Never Smokeless Tobacco: Never Tobacco Cessation:Counseling Given: Not Answered Alcohol Use Standard Drinks/Week Comments Yes 0 (1 standard drink = 0.6 oz pur e alcohol) socially Alcohol Use Answer Date Recorded Frequency of Alcohol Consumption Not on file 09/01/2024 Average Number of Drinks Not on file 025 Frequency of Binge Drinking Not on file 08/14 Alcohol Use Status Yes 09/01/2024 Average alcohol consumption Not on file 08/14 Comments Unknown Sex and Gender Information Value Date Recorded Sex Assigned at Not on file Legal Sex Female 7:22 AM CDT Gender Identity Not on file Sexual Orientation Not on file Last Filed Vital Signs Vital Sign Reading Time Taken Comments Blood Pressure 110/60 09/01/2024 9:03 AM CDT Pulse 92 09/01/2024 9:03 AM CDT Temperature 37 C (98.6 F) 09/01/2024 7:25 AM CDT Respiratory Rate 18 09/01/2024 9:03 AM CDT Oxygen Saturation 98% 09/01/2024 9:03 AM CDT Inhaled Oxygen Concentration - - Weight 67.1 kg (148 lb) 09/01/2024 7:25 AM CDT Height 170.2 cm (5' 7) 09/01/2024 7:25 AM CDT Body Mass Index 23.18 09/01/2024 7:25 AM CDT Plan of Treatment Health Maintenance Due Date Last Done Comments HIV Screening 1971 Hepatitis C Screening ages 1 8 to 79 once 1971 MMR VACCINES (1 of 1 - Stand wojciech series) 07/29/1972 YEARLY WELLNESS EXAM 07/29/1974 DEPRESSION SCREENING 1983 ADULT TETANUS 07/29/1990 HEPATITIS B VACCINES (1 of 3 - 19+ 3-dose series) 07/29/1990 CERVICAL CANCER SCREENING 07/29/1992 BREAST CANCER SCREENING 2011 Colon Cancer Screening 07/29/2016 LIPID TESTING 07/29/2016 Zoster Vaccine (Recombinant Vaccine) (1 of 2) 07/29/2021 COVID-19 Immunization (1 - 2 season) 2023 Influenza Vaccine 09/13/2024 HEPATITIS A VACCINES Aged Out No long er eligible based on patient's age to complete this topic HIB VACCINES Aged Out No longer eligi ble based on patient's age to complete this topic HPV VACCINES Aged Out No longer eligi ble based on patient's age to complete this topic IPV VACCINES Aged Out No longer eligi ble based on patient's age to complete this topic MENINGOCOCCAL VACCINE Aged Out No cassie claribel eligible based on patient's age to complete this topic Meningococcal B Vaccine Aged Out No l onger eligible based on patient's age to complete this topic Pneumococcal Vaccine: Peds t o 50 & At-Risk Patients Aged Out No longer eligible b ased on patient's age to complete this topic ROTAVIRUS VACCINES Aged Out No longer eligible based on patient's age to complete this topic Procedures Procedure Name Priority Date/Time Associated Diagnosis Comments CT HEAD WO CONTRAST STAT 09/01/2024 7 [address] FACIAL BONES WO CONTRAST STAT 09/01/2024 7:47 AM CDT from Last 3 Months Results * CT HEAD WO CONTRAST (09/01/2024 7:47 AM CDT) Anatomical Region Laterality Modality Head Computed Tomogra phy 09/01/2024 7:55 AM CDT Impressions 09/01/2024 7:57 AM CDT IMPRESSION: No evidence of acute intracranial process or facial fracture Narrative 09/01/2024 7:[address] HEAD WO CONTRAST, CT FACIAL BONES WO CONTRAST HISTORY: FACIAL LACERATION COMPARISON: None Automated exposure control was also utilized to decrease patient radiation dose. TECHNIQUE: Helical tomographic images of the brain and facial bones were obtained without the use of intravenous contrast. FINDINGS: Cerebral hemispheres: Normal. Sulci: Normal in configuration. No sulcal effacement. Extra-axial fluid: No abnormal extra-axial fluid collections. Ventricles: No hydrocephalus. Basilar cisterns: Normal. Posterior fossa and brainstem: Unremarkable Soft tissues: Forehead laceration is noted. Bones: No fractures or lesions. Sinuses and mastoid air cells: No air fluid levels There is no facial fracture. Orbits are intact. No foreign body is appreciated. Procedure Note Zach Quintero DO - 09/01/2024 CT HEAD WO CONTRAST, CT FACIAL BONES WO CONTRAST HISTORY: FACIAL LACERATION COMPARISON: None Automated exposure control was also utilized to decrease patient radiationdose. TECHNIQUE: Helical tomographic images of the brain and facial bones were obtainedwithout the use of intravenous contrast. FINDINGS: Cerebral hemispheres: Normal. Sulci: Normal in configuration. No sulcal effacement. Extra-axial fluid: No abnormal extra-axial fluid collections. Ventricles: No hydrocephalus. Basilar cisterns: Normal. Posterior fossa and brainstem: Unremarkable Soft tissues: Forehead laceration is noted. Bones: No fractures or lesions. Sinuses and mastoid air cells: No air fluid levels There is no facial fracture. Orbits are intact. No foreign body isappreciated. IMPRESSION: No evidence of acute intracranial process or facial fracture us Mignon Gastelum DO [facility] IMG CT ORDERABLES Final Resu lt * CT FACIAL BONES WO CONTRAST (09/01/2024 7:47 AM CDT) Anatomical Region Laterality Modality Facial Bones/Sinus Computed Kenn graphy 09/01/2024 7:55 AM CDT Impressions 09/01/2024 7:57 AM CDT IMPRESSION: No evidence of acute intracranial process or facial fracture Narrative 09/01/2024 7:[address] HEAD WO CONTRAST, CT FACIAL BONES WO CONTRAST HISTORY: FACIAL LACERATION COMPARISON: None Automated exposure control was also utilized to decrease patient radiation dose. TECHNIQUE: Helical tomographic images of the brain and facial bones were obtained without the use of intravenous contrast. FINDINGS: Cerebral hemispheres: Normal. Sulci: Normal in configuration. No sulcal effacement. Extra-axial fluid: No abnormal extra-axial fluid collections. Ventricles: No hydrocephalus. Basilar cisterns: Normal. Posterior fossa and brainstem: Unremarkable Soft tissues: Forehead laceration is noted. Bones: No fractures or lesions. Sinuses and mastoid air cells: No air fluid levels There is no facial fracture. Orbits are intact. No foreign body is appreciated. Procedure Note Zach Quintero, - 09/01/2024 CT HEAD WO CONTRAST, CT FACIAL BONES WO CONTRAST HISTORY: FACIAL LACERATION COMPARISON: None Automated exposure control was also utilized to decrease patient radiationdose. TECHNIQUE: Helical tomographic images of the brain and facial bones were obtainedwithout the use of intravenous contrast. FINDINGS: Cerebral hemispheres: Normal. Sulci: Normal in configuration. No sulcal effacement. Extra-axial fluid: No abnormal extra-axial fluid collections. Ventricles: No hydrocephalus. Basilar cisterns: Normal. Posterior fossa and brainstem: Unremarkable Soft tissues: Forehead laceration is noted. Bones: No fractures or lesions. Sinuses and mastoid air cells: No air fluid levels There is no facial fracture. Orbits are intact. No foreign body isappreciated. IMPRESSION: No evidence of acute intracranial process or facial fracture Mignon Gastelum DO [facility] IMG CT ORDERABLES Final Resu lt from Last 3 Months Insurance [facility] [place] [facility] [place] [facility] [facility]
[2024-10-11 11:59] LABS: Hematocrit 40.0 % (37.0-47.0); Hemoglobin 13.3 g/dL (12.0-15.0); Mean Corpuscular HGB Conc 33.3 g/dl (32-36); Mean Corpuscular Hemoglobin 30.2 pg (26-34); Mean Corpuscular Volume 90.9 fl (80-100); Platelet Count Result 266 k/mm3 (150-375); Red Blood Count 4.40 M/mm3 (4.2-5.4); White Blood Count 5.6 K/mm3 (4.5-10.0)
[2024-10-11 12:26] LABS: Alanine Aminotransferase 52 U/L (6-35); Albumin Level 4.9 g/dL (3.5-5.1); Alkaline Phosphatase 118 U/L (38-126); Anion Gap 8 mmol/L (4-12); Aspartate Amino Transferase 48 U/L (14-36); Bilirubin,Total 1.2 mg/dL (0.2-1.3); Blood Urea Nitrogen 17 mg/dL (7-17); Calcium 10.0 mg/dL (8.4-10.2); Carbon Dioxide 27 mmol/L (22-30); Chloride 103 mmol/L (98-107); Cholesterol 204 mg/dL (0-200); Estimated Glomerular Filt Rate > 60; Glucose 96 mg/dL (65-110); HDL Direct 80 mg/dL; Potassium 3.9 mmol/L (3.4-5.0); Sodium 138 mmol/L (137-145); Total Protein 8.1 g/dL (6.3-8.2); Triglycerides 67 mg/dL (<150)
[2024-10-11 13:02] LABS: Thyroid Stimulating Hormone 1.330 uIU/mL (0.465-4.680)
[2024-10-11 13:33] LABS: Hemoglobin A1C 5.7 % (<5.7)
== END 2024-10-11 11:16 | disposition home or self-care (01) ==
PROVIDERS: PCP Family Medicine; Visit Provider Nurse Practitioner Family
DX: Z00.00 Encounter for general adult medical examination without abnormal findings (principal); Z13.89 Encounter for screening for other disorder; Z13.220 Encounter for screening for lipoid disorders; Z13.1 Encounter for screening for diabetes mellitus
CPT/HCPCS: 36415; 80053; 80061; 82306; 83036; 84443; 85027